=== PATIENT | female | born 2000 | race Caucasian/White ===

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

== ENCOUNTER 2021-04-02 11:36 | Inpatient (IN) | payer MEDICAID ==
[~2021-04-02] VITALS: Ht 162.6 cm; Wt 54.5 kg
[~2021-04-02 11:36] MED LIST changes: -CEFD300C3 PO; -INSU100V36 SQ; -LANTUS SQ; +LORA-949 PO; +PANT-47 PO; -PANT40TA54 PO
[2021-04-02] MEDS ORDERED: normal saline 1000ML IV soln IVB ONE (11:55)
[2021-04-02 12:36] LABS: BASOPHILS # (AUTO) 0.1 X10'3 (0-0.2); BASOPHILS % (AUTO) 1.2 % (0-1); EOSINOPHILS % (AUTO) 0.2 % (0-6); HEMATOCRIT 46.1 % (35.0-45.0); HEMOGLOBIN 15.4 g/dl (12.0-16.0); LYMPHOCYTES # (AUTO) 1.8 X10'3 (1.1-4.8); LYMPHOCYTES % (AUTO) 28.6 % (21-51); MEAN CORPUSCULAR HEMOGLOBIN 30.9 PG (27.0-31.0); MEAN CORPUSCULAR HGB CONC 33.5 g/dL (33.0-36.5); MEAN CORPUSCULAR VOLUME 92.1 FL (78-98); MEAN PLATELET VOLUME 9.8 FL (7.4-10.4); MONOCYTES # (AUTO) 0.4 X10'3 (0-0.9); MONOCYTES % (AUTO) 6.3 % (2-12); NEUTROPHILS # (AUTO) 3.9 X10'3 (1.8-7.7); NEUTROPHILS % (AUTO) 63.7 % (42-75); PLATELET COUNT 337 X10'3 (140-440); RED CELL DISTRIBUTION WIDTH 13.6 % (11.5-14.5); WHITE BLOOD COUNT 6.2 X10'3 (4.5-11.0)
[2021-04-02] MEDS ORDERED: normal saline 1000ml 1,000 ML IV ONE (12:40)
[2021-04-02 12:48] LABS: URINE HCG NEGATIVE (NEG)
[2021-04-02 12:50] LABS: ALANINE AMINOTRANSFERASE 17 U/L (12-78); ALBUMIN 4.4 G/DL (3.4-5.0); ALKALINE PHOSPHATASE 80 IU/L (20-180); ANION GAP 23 (8-16); ASPARTATE AMINO TRANSFERASE 13 U/L (10-37); BILIRUBIN,TOTAL 0.7 MG/DL (0.1-1.0); BLOOD UREA NITROGEN 14 MG/DL (7-18); BUN/CREATININE RATIO 14.6 (6.6-38.0); CALCIUM 9.4 MG/DL (8.5-10.1); CHLORIDE 100 MMOL/L (99-107); CREATININE 0.96 MG/DL (0.40-0.90); GLUCOSE 357 MG/DL (70-104); POTASSIUM 4.3 MMOL/L (3.5-5.1); SODIUM 136 MMOL/L (135-145); TOTAL PROTEIN 8.6 G/DL (6.4-8.2); eGFR 75 ML/MIN
[2021-04-02 12:53] LABS: CLARITY,URINE CLEAR (Clear); COLOR,URINE STRAW (Yellow); GLUCOSE, URINE >=1000 mg/dl (Neg); PROTEIN,URINE 30 mg/dl (Neg); UA COLLECTION TYPE CLN CATCH MIDSTREAM
[2021-04-02 12:54] LABS: TOTAL CARBON DIOXIDE 13.5 MMOL/L (24-32)
[2021-04-02 12:54] LABS: KETONES,URINE >=80 mg/dl (Neg); LEUKOCYTE ESTERASE ,URINE NEGATIVE (Neg); NITRITES, URINE NEGATIVE (Neg); OCCULT BLOOD,URINE MODERATE (Neg); UROBILINOGEN,URINE 0.2 E.U/dL (0.2-1.0)
[2021-04-02 12:56] LABS: BACTERIA,URINE FEW /HPF (Neg); HYALINE CASTS 0-3 /LPF (NEGATIVE); MUCUS STRANDS FEW /LPF (Neg); RBC,URINE 0-2 /HPF (0-2); SQUAMOUS EPITHELIAL CELL,UR FEW /LPF (FEW); WBC,URINE 0-4 /HPF (0-4)
[2021-04-02] MEDS ORDERED: dextrose 50%-water 50ml dispensing syringe IV PRN ×3 (13:25→23:40)
[2021-04-02] MEDS ORDERED: Insulin Reg/NS 100units/100mL 100 ML IV SCH ×2 (13:25→15:40)
--- NOTE | 2021-04-02 14:23 | NUR ---
patient received in bed 4.
[2021-04-02] MEDS ORDERED: ondansetron/PF 4mg/2ml inj IV ONE (14:40)
[2021-04-02] MEDS ORDERED: metoclopramide 5 mg/ml inj IV ONE (14:40)
[2021-04-02] MEDS ORDERED: Neutra Phos packet PO PRN (15:40)
[2021-04-02] MEDS ORDERED: sodium bicarbonate (8.4%) inj. 50 MEQ in dextrose 5% water 500ml 250 ML IV PRN (15:40)
[2021-04-02] MEDS ORDERED: sodium phosphate inj. 15 MMOL in dextrose 5%-water 250 ML IV PRN (15:40)
[2021-04-02] MEDS ORDERED: potassium Cl 40MEQ/1/2NS 520ml 520 ML IV PRN ×2 (15:40)
[2021-04-02] MEDS ORDERED: potassium Cl 20 mEq SR tablet PO PRN ×2 (15:40)
[2021-04-02] MEDS ORDERED: potassium CL 20mEq in D5-1/2NS 1,000 ML IV PRN (15:40)
[2021-04-02] MEDS ORDERED: insulin regular, human U-100 3ml vial - multi-dose IV PRN (15:40)
[2021-04-02] MEDS ORDERED: sodium phosphate inj. 30 MMOL in dextrose 5%-water 250 ML IV PRN (15:40)
[2021-04-02] MEDS ORDERED: sodium bicarbonate (8.4%) inj. 100 MEQ in dextrose 5% water 500ml 500 ML IV PRN (15:40)
--- NOTE | 2021-04-02 15:45 | NUR ---
patient assisted to a bsc.
[2021-04-02] MEDS ORDERED: insulin regular, human 10 units/0.1 ml syringe IV PRN (15:46)
[2021-04-02] MEDS: normal saline 1000ml 1,000 ML IV SCH ×4 (16:00→17:40)
[2021-04-02 16:23] LABS: ALBUMIN 4.2 G/DL (3.4-5.0); ANION GAP 26 (8-16); BLOOD UREA NITROGEN 13 MG/DL (7-18); BUN/CREATININE RATIO 12.7 (6.6-38.0); CALCIUM 8.6 MG/DL (8.5-10.1); CHLORIDE 102 MMOL/L (99-107); CREATININE 1.02 MG/DL (0.40-0.90); GLUCOSE 351 MG/DL (70-104); POTASSIUM 4.7 MMOL/L (3.5-5.1); SODIUM 138 MMOL/L (135-145); eGFR 70 ML/MIN
[2021-04-02 16:36] LABS: TOTAL CARBON DIOXIDE 9.7 MMOL/L (24-32)
--- NOTE | 2021-04-02 17:38 | NUR ---
started patient on d5 1/2 ns 150ml/hour per protocol bg 173mg/dl.
[2021-04-02] MEDS ORDERED: dextrose 5%-1/4 normal saline 1,000 ML IV SCH (17:40)
[2021-04-02] MEDS ORDERED: dextrose 5%-1/2 normal saline 1,000 ML IV SCH (17:40)
[2021-04-02 18:48] LABS: ALBUMIN 3.6 G/DL (3.4-5.0); ANION GAP 18 (8-16); BLOOD UREA NITROGEN 11 MG/DL (7-18); BUN/CREATININE RATIO 12.9 (6.6-38.0); CHLORIDE 106 MMOL/L (99-107); CREATININE 0.85 MG/DL (0.40-0.90); GLUCOSE 166 MG/DL (70-104); PHOSPHORUS 2.4 MG/DL (2.3-4.5); POTASSIUM 4.3 MMOL/L (3.5-5.1); SODIUM 136 MMOL/L (135-145); eGFR 86 ML/MIN
[2021-04-02 18:53] LABS: TOTAL CARBON DIOXIDE 12.1 MMOL/L (24-32)
[2021-04-02] MEDS ORDERED: K and/or MAG REPLACEMENT MC SCH (20:00)
[2021-04-02] MEDS ORDERED: OWN INSULIN PUMP (20:14)
[2021-04-02 20:15] LABS: ALBUMIN 3.6 G/DL (3.4-5.0); ANION GAP 16 (8-16); BLOOD UREA NITROGEN 10 MG/DL (7-18); BUN/CREATININE RATIO 11.6 (6.6-38.0); CALCIUM 8.2 MG/DL (8.5-10.1); CHLORIDE 107 MMOL/L (99-107); CREATININE 0.86 MG/DL (0.40-0.90); GLUCOSE 148 MG/DL (70-104); SODIUM 138 MMOL/L (135-145); eGFR 85 ML/MIN
[2021-04-02] MEDS ORDERED: insulin Lispro (HumaLOG) vial - multi-dose SQ SCH (23:40)
[2021-04-02] MEDS ORDERED: glucagon, human recombinant 1mg kit SUBCUT PRN (23:40)
[2021-04-02] MEDS ORDERED: MESSAGE TO PHARMACY PO ONE (23:40)
[2021-04-02] MEDS ORDERED: dextrose ORAL solution 15 GM/59 ML bottle PO PRN ×2 (23:40)
[2021-04-02 23:53] VITALS: BP 121/86
--- NOTE | 2021-04-03 00:05 | NUR ---
called dr olivas to notify that patient wanted to leave AMA. gave pt risk and bebefits. verbalize understanding.
[2021-04-03 00:22] LABS: HEMOGLOBIN A1C 8.3 % (4.5-6.2)
[2021-04-03 00:49] LABS: PHOSPHORUS 2.9 MG/DL (2.3-4.5)
[2021-04-03] MEDS ORDERED: insulin glargine (Lantus) pen - multi-dose SQ SCH (21:00)
== END 2021-04-03 07:32 | disposition left against medical advice (07) | DRG 420 ==
LOC: ER 11:37 → ED HOLD 15:39
PROVIDERS: ADMIT Internal Medicine; ATTEND Internal Medicine
DX: E10.11 Type 1 diabetes mellitus with ketoacidosis with coma (principal); F17.210 Nicotine dependence, cigarettes, uncomplicated; F32.A Depression, unspecified; K21.9 Gastro-esophageal reflux disease without esophagitis; Z96.41 Presence of insulin pump (external) (internal); Z53.29 Procedure and treatment not carried out because of patient's decision for other reasons
CPT/HCPCS: 36415; 71045; 80048; 80053; 81001; 81025; 82948; 83036; 83605; 84100; 85025; 96365; 96375; 99285; G0378; J1815; J2405; J2765; J7030

== ENCOUNTER 2023-03-09 23:05 | Emergency (ER) | payer MEDICAID ==
[~2023-03-09] VITALS: Ht 160 cm; Wt 72.7 kg
[~2023-03-09 23:05] MED LIST changes: -BUPR100T7 PO; -CLON-371 PO; -ESCI-8 PO; +OWN INSULIN PUMP; -PANT-47 PO
[2023-03-09] MEDS ORDERED: normal saline 1000ML IV soln IVB ONE (23:10)
[2023-03-09] MEDS ORDERED: ondansetron/PF 4mg/2ml inj IV ONE (23:15)
[2023-03-09 23:45] LABS: BASOPHILS % (AUTO) 0.5 % (0-1); EOSINOPHILS % (AUTO) 0.7 % (0-6); HEMATOCRIT 42.7 % (35.0-45.0); HEMOGLOBIN 14.5 g/dl (12.0-16.0); LYMPHOCYTES # (AUTO) 2.1 X10'3 (1.1-4.8); LYMPHOCYTES % (AUTO) 35.1 % (21-51); MEAN CORPUSCULAR HEMOGLOBIN 32.4 PG (27.0-31.0); MEAN CORPUSCULAR VOLUME 95.2 FL (78-98); MEAN PLATELET VOLUME 8.4 FL (7.4-10.4); MONOCYTES # (AUTO) 0.5 X10'3 (0-0.9); MONOCYTES % (AUTO) 8.6 % (2-12); NEUTROPHILS # (AUTO) 3.3 X10'3 (1.8-7.7); NEUTROPHILS % (AUTO) 55.1 % (42-75); PLATELET COUNT 248 X10'3 (140-440); RED BLOOD COUNT 4.48 X10'6 (4.20-5.60); WHITE BLOOD COUNT 6.1 X10'3 (4.5-11.0)
[2023-03-09 23:51] LABS: GLUCOSE 278 MG/DL (70-104)
[2023-03-09 23:52] LABS: ALANINE AMINOTRANSFERASE 21 U/L (12-78); ALBUMIN/GLOBULIN RATIO 1.3 (1.1-1.5); ALKALINE PHOSPHATASE 56 IU/L (46-116); ANION GAP 11 (8-16); ASPARTATE AMINO TRANSFERASE 13 U/L (10-37); BILIRUBIN,TOTAL 0.3 MG/DL (0.1-1.0); BLOOD UREA NITROGEN 10 MG/DL (7-18); BUN/CREATININE RATIO 15.9 (10.0-20.0); CHLORIDE 103 MMOL/L (99-107); CREATININE 0.63 MG/DL (0.40-0.90); ETHANOL 234 MG/DL (<10); SODIUM 137 MMOL/L (135-145); TOTAL CARBON DIOXIDE 22.8 MMOL/L (24-32); TOTAL PROTEIN 7.2 G/DL (6.4-8.2); eCRCL 117 ML/MIN; eGFR > 90 ML/MIN
[2023-03-09 23:54] LABS: LIPASE 66 U/L (16-77)
[2023-03-09 23:57] LABS: POTASSIUM 2.9 MMOL/L (3.5-5.1)
[2023-03-10] MEDS: potassium CL 10mEq/100ml bag 100 ML IV SCH ×4 (00:11→02:37)
[2023-03-10] MEDS ORDERED: acetaminophen 325mg tablet PO ONE (00:25)
[2023-03-10 02:30] VITALS: BP 102/64; PULSE 93; RESP 16; O2SAT 100
== END 2023-03-10 02:53 | disposition home or self-care (01) ==
LOC: ER 23:05
DX: F10.129 Alcohol abuse with intoxication, unspecified (principal); E11.65 Type 2 diabetes mellitus with hyperglycemia; E87.6 Hypokalemia; Z79.899 Other long term (current) drug therapy; Y90.9 Presence of alcohol in blood, level not specified
CPT/HCPCS: 36415; 80053; 80320; 82948; 83690; 85025; 96361; 96374; 99285; J2405; J3480; J7030

== ENCOUNTER 2024-09-04 16:14 | Emergency (ER) | payer MEDICAID | END 2024-09-04 18:25 | disposition left against medical advice (07) | LOC: ER 16:15 | DX: Z00.00 Encounter for general adult medical examination without abnormal findings (principal); Z53.21 Procedure and treatment not carried out due to patient leaving prior to being seen by health care provider ==